=== PATIENT | male | born 1945 | race African-American/Black ===

== ENCOUNTER → 2016-09-12 | Outpatient (CLI) | payer OTHER, BC ==
[~2016-09-12] VITALS: Ht 185.4 cm; Wt 111.9 kg
[~2016-09-12] MED LIST: ACTOS 30 MG TAB30 M1 PO; ALEVE220 MG PO; AMLODIPINE BESY10 MG PO; ASPIR 8181 MG PO; ASPIRIN325 PO; CARDURA2 MG PO; HYDROCODONE-AP1 EAC6 PO; LISINOPRIL-HCT1 EAC2 PO; METOPROLOL SUCC50 MG PO; NORCO 7.5-3251 EACH PO; NORFLEX100 MG PO; NORVASC 5 MG TAB5 MG PO; TRAMADOL 50 MG50 MG PO; ZETIA10 MG PO; ZOCOR40 MG PO
--- NOTE | ~2016-09-12 | HPC ---
[facility] [address] [place] [address] PAIN MANAGEMENT CONSULTATION Name: SIMON MOULTON Room #: REG MANDY GrahamJeannetteTamika.#: [id number] Admission: 09/12/16 Attend Phys: Richard Mike DO Discharge: Date of : 43 Report #: [id number] THIS REPORT FOR: //name// CC: Bert Hansen NP DATE OF SERVICE: 09/12/2016 REFERRING PHYSICIAN: Dallas Jackson MD and Haley Hansen NP. CHIEF COMPLAINT: Low back pain, bilateral lower extremity pain with paresthesias. HISTORY OF PRESENT ILLNESS: As you know, the patient is a very pleasant 71-year-old male, who returns today in followup visit with pain score 3-4/10. States his pain began 8-9 years ago, worse in 2-3 years ago. He indicates his pain is tingling and unsteady. Describes the pain as exacerbated with walking and improves with medications and epidural injections. He underwent epidural injection at our last visit with a 70% improvement in overall pain that is ongoing. He has returned today in followup visit, requesting an epidural injection to build on the success of previous intervention. Denies any new injury or new trauma. ALLERGIES: No known drug allergies. CURRENT MEDICATIONS: Zetia, metoprolol, Cardura, amlodipine, hydrocodone, Actos, aspirin, Zocor, and lisinopril/hydrochlorothiazide. SOCIAL HISTORY: The patient is a reformed smoker. He has 1 year of nonsmoking. Denies IV or illicit drug use. Admits to occasional alcoholic beverage. He is retired. Unaccompanied today. PHYSICAL EXAMINATION: VITAL SIGNS: Blood pressure 186/87, pulse 70, respiratory rate 16 and unlabored. The patient is 99% on room air, height 6 feet 1 inch tall, weight 246.8 pounds, BMI calculated 32.6. GENERAL: Well developed, well nourished, and well hydrated. A 71-year-old, exogenously obese male, appearing his stated age, pain is rated at 3-4/10. HEENT: Normocephalic and atraumatic. Pupils are equally round and reactive to light. EXTREMITIES: Show no clubbing, no cyanosis, no edema. MUSCULOSKELETAL: Lower extremity strength appears equal and symmetrical at 5/5, intact to light touch from L1 through S2 dermatomes. Ronald's test negative. [facility] [address] [place] [address] PAIN MANAGEMENT CONSULTATION Name: SIMON MOULTON [facility] [id number] Admission: 09/12/16 Attend Phys: Richard Mike DO Discharge: Date of : 43 Report #: [id number] Modified Gaenslen's is positive for axial low back pain. Gait is tandem. Station normal. Seated straight leg raising negative. Supine straight leg raising positive. ASSESSMENT: 1. Symptomatic lumbar radiculopathy. 2. Displacement of lumbar intervertebral disk with radiculopathy. 3. Lumbosacral spondylosis with radiculopathy. 4. Degeneration of the lumbar spine. 5. Chronic intractable pain. PLAN: 1. The patient returns today in followup visit, requesting to undergo the next in the series of epidural injections. He has noted 70% improvement in overall pain with previous injection. He has been advised the risks and benefits of the repeat injection, states he understood and wished to proceed. 2. The patient's blood pressure is quite elevated today, blood pressure is 186/87. I recommend the patient return to see his primary care physician for adjustment in his oral antihypertensive therapy. The patient states he will make an appointment as quickly as possible. He will be seen in consultation. 3. No medication changes were made at today's visit from a pain standpoint. He is to continue current medical therapy as previously prescribed. 4. We will see the patient back in followup visit on an as needed basis for a possible repeat epidural injection. We are pleased to see he has done very well with the initial injection, and I am hopeful, he will see similar improvement with today's procedure, delaying the third in the series, as long as possible. PROCEDURE NOTE: DESCRIPTION OF PROCEDURE: L5-S1 interlaminar epidural steroid injection under fluoroscopic guidance. This is the second procedure of the first series that the patient is undergoing. After obtaining written consent, the patient was taken back to the fluoroscopy suite, placed in a prone position with pillow under the abdomen to decrease lumbar lordosis. The skin overlying the lumbosacral area was then prepped and draped in aseptic fashion. The L5-S1 vertebral interspace was then identified by AP fluoroscopy. The skin and subcutaneous tissue overlying the target site of injection was anesthetized with 3 mL 1% lidocaine. A 20-guage 3-1/2 inch Tuohy needle was then advanced under fluoroscopic guidance towards the epidural space using a paramedian approach. The epidural space was identified using loss of resistance to air technique. After negative aspiration for heme or cerebrospinal fluid, a total of 1 mL of Omnipaque was injected. A lumbar epidurogram was confirmed using both AP and lateral fluoroscopy. After negative aspiration for heme or cerebrospinal fluid, 5 mL of solution of [address] [address] PAIN MANAGEMENT CONSULTATION Name: SIMON MOULTON Room #: REG MANDY Chaney#: [id number] Admission: 09/12/16 Attend Phys: Richard Mike DO Discharge: Date of : 43 Report #: [id number] containing 2 mL 40 mg per mL 80 mg in total triamcinolone, 3 mL of lidocaine 1% was injected in increments. Contrast spread was noted posterior epidural space. The needle was then retracted approximately half way and needle tract flushed with 1 mL of 1% lidocaine. Needle was then removed. There were no apparent sensory or motor deficits in the lower extremity following the procedure. A sterile bandage was placed over the injection site. The heart rate, pulse, oximetry and blood pressure were continuously monitored after the procedure. There were no apparent complications. The patient tolerated the procedure well and was carefully escorted to the recovery room in stable condition. There were no apparent complications. After meeting discharge criteria, the patient was then discharged home. <ELECTRONICALLY SIGNED> By: Richard Mike DO 09/13/16 0757 [id number] Richard Mike DO /nt
[2016-09-12 09:21] VITALS: BP 186/87
== END | disposition home or self-care (01) ==
LOC: PAIN 07-04 11:17
DX: M51.16 Intervertebral disc disorders with radiculopathy, lumbar region (principal); M47.27 Other spondylosis with radiculopathy, lumbosacral region; G89.29 Other chronic pain; Z87.891 Personal history of nicotine dependence

== ENCOUNTER → 2017-07-03 | Outpatient (CLI) | payer OTHER, BC ==
[~2017-07-03] VITALS: Ht 185.4 cm; Wt 110.9 kg
--- NOTE | ~2017-07-03 | HPC ---
[facility] [address] [place] [address] PAIN MANAGEMENT CONSULTATION Name: SIMON MOULTON Room #: REG MANDY M.Tamika.#: [id number] Admission: 07/03/17 Attend Phys: Richard Mike DO Discharge: Date of : 43 Report #: [id number] THIS REPORT FOR: //name// CC: Bert Hansen NP DATE OF SERVICE: 07/03/2017 CHIEF COMPLAINT: Low back pain, bilateral lower extremity pain with paresthesias. HISTORY OF PRESENT ILLNESS: As you know, the patient is a very pleasant 72-year-old male, who returns today in followup visit reporting pain score of around 4/10, states his pain numbness, tingling, unsteady and deep aching in sensation, exacerbated with walking and exercise. Improves with medications, rest and epidural injections. The patient reports a 75% improvement of overall pain with previous epidural injection. He returns today in followup visit requesting to undergo the next in a series of epidural injections. He denies injury or trauma that may have led to progression of symptoms. He reports no change in his medical history since our last visit. ALLERGIES: No known drug allergies. CURRENT MEDICATIONS: Zetia, metoprolol, Cardura, amlodipine, hydrocodone, pioglitazone, aspirin, simvastatin, lisinopril/hydrochlorothiazide. SOCIAL HISTORY: The patient is a reformed smoker. Denies IV or illicit drug use. Denies any chronic alcohol use. He is unaccompanied today. IMAGING: No new imaging available. PHYSICAL EXAMINATION: VITAL SIGNS: Blood pressure 144/91, pulse 61, respiratory rate 16, unlabored. The patient is 97% on room air, height 6 feet 1 inch tall, weight 244.4 pounds, BMI calculated 32.3. GENERAL: Well-developed, well-nourished, well-hydrated 72-year-old male, appearing stated age, placing current pain score 4/10. HEENT: Normocephalic, atraumatic. Pupils equal, round, reactive to light. Speech fluent. EXTREMITIES: Show no clubbing, no cyanosis, no edema. MUSCULOSKELETAL: Lower extremity strength equal and symmetrical 5/5, intact to light touch from L1 through S2 dermatomes. Gait is mildly antalgic. Seated straight leg raising negative. Supine straight leg raising positive. Modified Gaenslen's positive for axial low back pain. Ankle clonus negative. [address] [address] PAIN MANAGEMENT CONSULTATION Name: SIMON MOULTON Room #: REG CLI [facility]#: [id number] Admission: 07/03/17 Attend Phys: Richard Mike DO Discharge: Date of : 43 Report #: [id number] is negative. ASSESSMENT: 1. Symptomatic lumbar radiculopathy. 2. Displacement of lumbar intervertebral disk with radiculopathy. 3. Lumbosacral spondylosis with radiculopathy. 4. Lumbar degeneration. 5. Chronic intractable pain. PLAN: 1. The patient returns today in followup visit indicating good benefit with previous epidural injection, 75% improvement in overall pain, lasting until just recently. He has had a slow and progressive return of symptoms, returning today requesting epidural injection. He denies injury or trauma or changes in medical history since our last visit. He has been advised on risks and benefits of the procedure. These risks include but are not necessarily limited to bleeding, bruising, infection, worsening pain, no relief of pain, also risk of temporary or permanent muscle weakness, temporary or permanent nerve damage, possible paralysis and . The patient states understood and wished to proceed. 2. No medication changes were made at today's visit. The patient will continue current medical therapy as previously prescribed. 3. The patient to return to our clinic on an as needed basis for the next in a series of epidural injections. PROCEDURE NOTE DESCRIPTION OF PROCEDURE: L5-S1 interlaminar epidural steroid injection under fluoroscopic guidance. After obtaining written consent, the patient was taken back to fluoroscopy suite, placed in prone position with pillow under abdomen to decrease lumbar lordosis. Skin overlying lumbosacral area prepped and draped in aseptic fashion. Lumbar intervertebral spaces were identified by AP fluoroscopy. Skin and subcutaneous tissue overlying target site of injection was anesthetized with 3 mL of 1% lidocaine. A 20-gauge 3.5 inch Tuohy needle advanced under fluoroscopic guidance towards the epidural space using a left paramedian approach. Epidural space identified using loss of resistance to air technique. After negative aspiration for heme or cerebrospinal fluid, 1 mL of Omnipaque was injected. Lumbar epidurogram was confirmed using both AP and lateral fluoroscopy. After negative aspiration for heme or cerebrospinal fluid, 5 mL of a solution containing 2 mL 40 mg/mL 80 mg total triamcinolone, 3 mL lidocaine 1% injected slowly. Needle retracted senior care, needle tract flushed 3 mL 1% lidocaine. Needle then removed. Sterile bandage placed over injection site. No new motor deficits present in the lower extremities following procedure. [facility] [address] [place] [address] PAIN MANAGEMENT CONSULTATION Name: SIMON MOULTON Room #: REG Ruel Olayinka#: [id number] Admission: 07/03/17 Attend Phys: Richard Mike DO Discharge: Date of : 43 Report #: [id number] The patient tolerated procedure well, carefully escorted to the recovery in stable condition. No apparent complications. After meeting discharge criteria, the patient discharged home. By: [id number] Richard Mike DO /nt
[2017-07-03 08:47] VITALS: BP 144/91
== END | disposition home or self-care (01) ==
LOC: PAIN 06:52
DX: M51.16 Intervertebral disc disorders with radiculopathy, lumbar region (principal); M47.27 Other spondylosis with radiculopathy, lumbosacral region; G89.29 Other chronic pain; Z87.891 Personal history of nicotine dependence; Z79.899 Other long term (current) drug therapy; Z79.82 Long term (current) use of aspirin

== ENCOUNTER → 2018-11-26 | Outpatient (CLI) | payer OTHER, BC ==
[~2018-11-26] VITALS: Ht 185.4 cm; Wt 111.1 kg
[2018-11-26 10:55] VITALS: BP 164/86
--- NOTE | 2018-11-26 11:02 | NUR ---
Pain Clinic Assessment: 1. History of Osteoarthritis: Not Applicable History of Rheumatoid Arthritis: Not Applicable 2. Height: 6 ft. 1 in. 185.4 cm. Weight: 245.0 lb. oz. 111.132 kg. Patient's BMI: 32.3 3. Vital Signs: BP: 164/86 Pulse: 55 Resp: 16 Temp: 02 Sat: 98 ECG Mon: 4. Pain Intensity: 7 5. Fall Risk: Dizziness: N Needs help standing or walking: N Fallen in the last 3 months: N Fall risk comments: 6. Patient on Blood Thinner: None 7. History of Hypertension: Y 8. Opioid Therapy greater than 6 weeks: Y Opiate Contract Signed: 9. Risk Assessment Tool Provided: 0-LOW 10. Functional Assessment Tool: 11. Recreational Drug Use: Never Drug Type: Tobacco Use: Former Smoker Tobacco Type: Amount or Packs/day: How Many Years: Alcohol Use: No Frequency: Quant:
--- NOTE | 2018-12-03 08:15 | HPC ---
[facility] [address] [place] [address] PAIN MANAGEMENT CONSULTATION Name: SIMON MOULTON Room #: REG CLRuel M.Tamika.#: [id number] Admission: 11/26/18 ������������������ Attend Phys: Richard Mike DO Discharge: ������������������ Date of : 43 Report #: [id number] THIS REPORT FOR: //name// CC: Bert Hansen NP DATE OF SERVICE: 11/26/2018 CHIEF COMPLAINT: Low back pain, bilateral lower extremity pain with paresthesias. HISTORY OF PRESENT ILLNESS: As you know, the patient is a very pleasant 73-year-old male, who returns today in followup visit with recurrent low back pain and mainly left lower extremity pain with paresthesias. He indicates pain level of 7/10, states pain is tingling, unsteady, numbness, deep aching and fatiguing in its presentation. He describes pain is exacerbated with walking and exercise, improves with medications and rest and previous epidural injection. The patient reports 80% improvement in overall pain with the last epidural injection lasting for nearly 9 months. He returns today in followup visit to undergo next in the series to address recurrent lumbar radicular symptoms. He denies new injury, new trauma or any changes in medical history since our last visit. ALLERGIES: No known drug allergies. CURRENT MEDICATIONS: Zetia, metoprolol, Cardura, amlodipine, hydrocodone, pioglitazone, aspirin, simvastatin, lisinopril/hydrochlorothiazide. SOCIAL HISTORY: The patient denies tobacco, alcohol, IV or illicit drug use. He is a reformed smoker. He is unaccompanied today. IMAGING: There is no new imaging available. PQRS: The patient has osteoarthritic changes of the low back, bilateral hips and knees. No rheumatoid arthritis. He is placing pain intensity today at 7/10. He is not a fall risk, has not had a fall in the last 3 months. He is not on blood thinners. She has history of hypertension. He has been on long-term opioids and is a low risk for opioid addiction. He is placing pain impact score 13/70 indicating mild interference of daily activities secondary to pain. PHYSICAL EXAMINATION: VITAL SIGNS: Blood pressure 164/86, pulse is 55, respiratory rate 16 and unlabored. The patient is 98% on room air, height 6 feet 1 inch tall, weight [facility] [address] [place] [address] PAIN MANAGEMENT CONSULTATION Name: SIMON MOULTON Room #: REG [facility] M.R.#: [id number] Admission: 11/26/18 ������������������ Attend Phys: Richard Mike DO Discharge: ������������������ Date of : 43 Report #: [id number] 245 pounds, BMI calculated 32.3. GENERAL: Well-developed, well-nourished, well-hydrated 73-year-old male, appearing stated age, placing current pain score 7/10. HEENT: Normocephalic, atraumatic. Pupils equal, round, reactive to light. EXTREMITIES: Show no clubbing, no cyanosis, no edema. MUSCULOSKELETAL: Lower extremity strength is symmetrical 5/5. Slight giveaway strength noted with hip flexion on the left due to pain generation. Muscle bulk and tone is symmetrical in comparing left lower extremity to right. Seated straight leg raising negative. Supine straight leg raising positive left. KERON test negative. ASSESSMENT: 1. Symptomatic lumbar radiculopathy. 2. Displacement of a lumbar intervertebral disk with radiculopathy. 3. Lumbosacral spondylosis with radiculopathy. 4. Degeneration of lumbar spine. 5. Chronic intractable pain. PLAN: 1. The patient has returned today in followup visit requesting to undergo epidural injection under fluoroscopic guidance to address his recurrent lumbar radicular symptoms. He is now placing pain score 7/10. Pain is radiating in the typical distribution he has had in the past. He received excellent benefit with previous epidural injection for nearly 9 months of an 80% improvement. He returns requesting to undergo next in the series of epidural injections to build on success of previous intervention. The patient is advised of the risks and benefits of the procedure, states understood and wished to proceed. 2. No medication changes made at today's visit. The patient will continue current medical therapy as previously prescribed. 3. We will see the patient back in followup visit on an as needed basis for the next in the series of lumbar epidural injections. PROCEDURE NOTE DESCRIPTION OF PROCEDURE: L5-S1 left paramedian epidural steroid injection under fluoroscopic guidance. This is the second procedure of the second series that the patient is undergoing. After obtaining written consent, the patient was taken back to the fluoroscopy suite, placed in a prone position with pillow under the abdomen to decrease lumbar lordosis. The skin overlying the lumbosacral area was then prepped and draped in aseptic fashion. The L5-S1 vertebral interspace was then identified by AP fluoroscopy. The skin and subcutaneous tissue overlying the target site of injection was anesthetized with 3 mL 1% lidocaine. [address] [address] PAIN MANAGEMENT CONSULTATION Name: SIMON MOULTON Room #: REG MANDY Bhagat#: [id number] Admission: 11/26/18 ������������������ Attend Phys: Richard Mike DO Discharge: ������������������ Date of : 43 Report #: [id number] A 20-guage 3-1/2 inch Tuohy needle was then advanced under fluoroscopic guidance towards the epidural space using a left paramedian approach. The epidural space was identified using loss of resistance to air technique. After negative aspiration for heme or cerebrospinal fluid, a total of 0.7 mL of Omnipaque was injected. A lumbar epidurogram was confirmed using both AP and lateral fluoroscopy. After negative aspiration for heme or cerebrospinal fluid, 5 mL of a solution containing 2 mL, 40 mL per mL, 80 mg total of triamcinolone, 3 mL of lidocaine 1% was injected in increments. Contrast spread was noted posterior epidural space. The needle was then retracted approximately half way and needle tract flushed with 1 mL of 1% lidocaine. Needle was then removed. There were no apparent sensory or motor deficits in the lower extremity following the procedure. A sterile bandage was placed over the injection site. The heart rate, pulse, oximetry and blood pressure were continuously monitored after the procedure. There were no apparent complications. The patient tolerated the procedure well and was carefully escorted to the recovery room in stable condition. There were no apparent complications. After meeting discharge criteria, the patient was then discharged home. ��������������������������������������������� <ELECTRONICALLY SIGNED> ���������������������������������������� By: Richard Mike DO ��������������������������������������������� 12/03/18 0815 [id number] Richard Mike DO /nt
== END | disposition home or self-care (01) ==
LOC: PAIN 07:13
DX: M51.16 Intervertebral disc disorders with radiculopathy, lumbar region (principal); M47.27 Other spondylosis with radiculopathy, lumbosacral region; G89.29 Other chronic pain; M19.90 Unspecified osteoarthritis, unspecified site; I10 Essential (primary) hypertension; Z87.891 Personal history of nicotine dependence; Z79.899 Other long term (current) drug therapy; Z79.82 Long term (current) use of aspirin; Z79.891 Long term (current) use of opiate analgesic; Z98.890 Other specified postprocedural states

== ENCOUNTER → 2019-12-02 | Outpatient (CLI) | payer OTHER, BC ==
[~2019-12-02] VITALS: Ht 185.4 cm; Wt 111.0 kg
[~2019-12-02] MED LIST changes: +MELOXICAM7.5 MG PO
[2019-12-02 08:20] VITALS: BP 163/79
--- NOTE | 2019-12-02 08:38 | NUR ---
Pain Clinic Assessment: 1. History of Osteoarthritis: Not Applicable History of Rheumatoid Arthritis: Not Applicable 2. Height: 6 ft. 1 in. 185.4 cm. Weight: 244.6 lb. oz. 110.950 kg. Patient's BMI: 32.3 3. Vital Signs: BP: 163/79 Pulse: 66 Resp: 14 Temp: 02 Sat: 100 ECG Mon: 4. Pain Intensity: 4-5 5. Fall Risk: Dizziness: N Needs help standing or walking: N Fallen in the last 3 months: N Fall risk comments: 6. Patient on Blood Thinner: None 7. History of Hypertension: Y 8. Opioid Therapy greater than 6 weeks: Y Opiate Contract Signed: 9. Risk Assessment Tool Provided: 0-LOW 10. Functional Assessment Tool: 11. Recreational Drug Use: Never Drug Type: Tobacco Use: Former Smoker Tobacco Type: Amount or Packs/day: How Many Years: Alcohol Use: No Frequency: Quant:
--- NOTE | 2019-12-09 09:15 | HPC ---
[facility] [place] [address] PAIN MANAGEMENT CONSULTATION Name: SIMON MOULTON Room #: REG Ruel M.R.#: [id number] Admission: 12/02/19 Attend Phys: Richard Mike DO Discharge: Date of : 43 Report #: [id number] THIS REPORT FOR: cc: Bert Pardo MD, David A. MD Johnson, James E. DO ~ DATE OF SERVICE: 12/02/2019 CHIEF COMPLAINT: Low back pain, bilateral lower extremity pain, left greater than right, chronic left knee pain. HISTORY OF PRESENT ILLNESS: As you know, the patient is a very pleasant 74-year-old male who returns today in followup visit to undergo next in the series of lumbar epidural injections under fluoroscopic guidance. The patient reports previous epidural injection gave 75% improvement in overall pain. This was provided on 11/26/2018. He returns today in followup visit to undergo next in the series of lumbar epidural injections to address recurrent lumbar radicular symptoms, rating pain at 4-5/10. The patient denies injury or trauma that may have led to symptom development. He is also complaining of chronic left knee pain due to osteoarthritis and wishes further workup in regards to this issue. He denies injury or trauma to this left knee as well. ALLERGIES: No known drug allergies. CURRENT MEDICATIONS: Metoprolol 50 mg once a day, amlodipine 10 mg once a day, hydrocodone 5/325 one tab every 8 hours p.r.n. for pain, pioglitazone 30 mg once a day, aspirin 81 mg per day, lisinopril/hydrochlorothiazide 20/25 mg once a day. SOCIAL HISTORY: The patient denies tobacco, alcohol, IV or illicit drug use. He is a reformed smoker. He is unaccompanied today. IMAGING: No new imaging available. PQRS: The patient has known arthritic changes of the lumbar spine, bilateral hips and bilateral knees, left greater than right. No rheumatoid arthritis. He is placing pain today at 4-5/10. Not a fall risk, has not had a fall in last 3 months. He is not on blood thinners, but is treated for hypertension. He is on chronic opioids and has a low opioid addiction potential based on our assessment tool. Pain impact score 5/70 indicating mild interference of daily activities secondary to pain. PHYSICAL EXAMINATION: VITAL SIGNS: Blood pressure 163/79, pulse 66, respiratory rate 14 and [facility] [address] [place] [address] PAIN MANAGEMENT CONSULTATION Name: SIMON MOULTON [id number] Admission: 12/02/19 Attend Phys: Richard Mike DO Discharge: Date of : 43 Report #: [id number] unlabored. The patient is 100% on room air. Height 6 feet 1 inch tall, weight 244.6 pounds, BMI calculated 32.3. GENERAL: Well-developed, well-nourished, well-hydrated 74-year-old male appearing his stated age, pain is rated anywhere from 4-5/10. HEENT: Normocephalic, atraumatic. Pupils equal, round, and reactive to light. Extraocular muscles are intact. EXTREMITIES: Show no clubbing, no cyanosis, and no edema. MUSCULOSKELETAL: There is palpatory tenderness noted over the paraspinal musculature of lower lumbar spine. No spinous process tenderness. Seated straight leg raising negative. Supine straight leg raising positive on the left. Active and passive range of motion of the left knee causes intensification of pain. Lateral collateral and medial collateral ligaments are intact. Drawer tests are negative, both anterior and posterior. ASSESSMENT: 1. Symptomatic lumbar radiculopathy. 2. Displacement of lumbar intervertebral disk with radiculopathy. 3. Lumbosacral spondylosis with radiculopathy. 4. Lumbar degeneration. 5. Osteoarthritis of the left knee. 6. Chronic intractable pain. PLAN: 1. Based on today's physical exam and history the patient has provided, the description the patient uses in regards to pain as well as location of symptoms, likely source of the patient's pain is lumbar radiculopathy. The patient does have a pain level today rated at 4-5/10 consistent with his lumbar radicular symptoms involving mainly the left lower extremity. He has been advised of the risks and the benefits of repeated epidural injection. These risks include but are not necessarily limited to bleeding, bruising, infection, worsening pain, no relief of pain, also risk of temporary or permanent muscle weakness, temporary or permanent nerve damage, possible paralysis and . The patient states understood and wished to proceed. 2. The patient does appear to have increasing arthritic changes of the left knee. Active and passive range of motion does increase overall knee pain, though drawer tests are negative as is laxity testing for the medial collateral and lateral collateral ligaments. Given the patient's age, I believe his symptoms are related more osteoarthritis. I was unable to elicit any concerning findings for a meniscal injury. We recommend the patient to undergo x-ray imaging of the left knee to further evaluate. There is a possibility we can discuss interventional treatments with patient if necessary. He is amenable to undergo the x-ray today. The patient was given an x-ray request for AP and lateral imaging to further evaluate this left knee. If findings are significant, I may provide a referral to Orthopedics. 3. We will start the patient on meloxicam to address his ongoing left knee osteoarthritic pain as well as his other pain generators due to osteoarthritis [facility] [address] [place] [address] PAIN MANAGEMENT CONSULTATION Name: SIMON MOULTON Room #: REG [facility].#: [id number] Admission: 12/02/19 Attend Phys: Richard Mike DO Discharge: Date of : 43 Report #: [id number] including the right knee and bilateral hips. I have started the patient on 7.5 mg dose of meloxicam to be taken in the morning. He can then follow up with a second dose in the evening with meal. He was given #60 tablets and 2 refills, 3 months' worth of medication. The patient will make sure he contact his PCP before initiating the therapy as there is a potential concern of longstanding nonsteroidal anti-inflammatory treatment and renal effects. Prescription was sent via e-script to local pharmacy. 4. We will see the patient back in followup visit on an as needed basis for possible next in the series of epidural injections. He can contact our clinic tomorrow, 12/03/2019 for the findings of his x-ray imaging of the left knee. PROCEDURE NOTE: DESCRIPTION OF PROCEDURE: L5-S1 left paramedian epidural steroid injection under fluoroscopic guidance. After obtaining written consent, the patient was taken back to fluoroscopy suite, placed in prone position with pillow under abdomen to decrease lumbar lordosis. Skin overlying lumbosacral area then prepped and draped in aseptic fashion. The L5-S1 vertebral interspace identified by AP fluoroscopy. Skin and subcutaneous tissue overlying target site injection anesthetized with 3 mL of 1% lidocaine. A 20-gauge 3-1/2 inch Tuohy needle advanced under fluoroscopic guidance towards the epidural space using left paramedian approach. The epidural space identified using loss of resistance to air technique. After negative aspiration for heme or cerebrospinal fluid, 1 mL of Omnipaque injected. Lumbar epidurogram confirmed using both AP and oblique fluoroscopy. After negative aspiration for heme or cerebrospinal fluid, 5 mL of a solution containing 2 mL 40 mg per mL, 80 mg total of triamcinolone along with 3 mL of lidocaine 1% injected slowly. Needle retracted skilled nursing, flushed with 1 mL of 1% lidocaine and then removed. Sterile bandage placed over injection site. No new motor deficits present in lower extremities following procedure. The patient tolerated procedure well, carefully escorted to recovery room in stable condition. No apparent complications. After meeting discharge criteria, the patient discharged home. <ELECTRONICALLY SIGNED> By: Richard Mike DO 12/09/19 0915 [id number] [id number] Richard Mike DO /nt
== END | disposition home or self-care (01) ==
LOC: PAIN 06:41
DX: M51.16 Intervertebral disc disorders with radiculopathy, lumbar region (principal); M47.27 Other spondylosis with radiculopathy, lumbosacral region; G89.29 Other chronic pain; M17.12 Unilateral primary osteoarthritis, left knee; M19.90 Unspecified osteoarthritis, unspecified site; I10 Essential (primary) hypertension; Z98.890 Other specified postprocedural states; Z79.899 Other long term (current) drug therapy; Z79.82 Long term (current) use of aspirin; Z79.891 Long term (current) use of opiate analgesic

== ENCOUNTER → 2021-09-13 | Outpatient (CLI) | payer OTHER, BC ==
[~2021-09-13] VITALS: Ht 185.4 cm; Wt 109.8 kg
[~2021-09-13] MED LIST changes: +FENOFIBRATE160 MG PO
[2021-09-13 09:06] VITALS: BP 162/90
--- NOTE | 2021-09-13 09:28 | NUR ---
Pain Clinic Assessment: 1. History of Osteoarthritis: SPINE AND LEFT KNEE History of Rheumatoid Arthritis: Not Applicable 2. Height: 6 ft. 1 in. 185.4 cm. Weight: 242.0 lb. oz. 109.771 kg. Patient's BMI: 31.9 3. Vital Signs: BP: 162/90 Pulse: 78 Resp: 14 Temp: 02 Sat: 100 ECG Mon: 4. Pain Intensity: 0 TO 6 (IN am) 5. Fall Risk: Dizziness: N Needs help standing or walking: N Fallen in the last 3 months: N Fall risk comments: 6. Patient on Blood Thinner: None 7. History of Hypertension: Y 8. Opioid Therapy greater than 6 weeks: Y Opiate Contract Signed: 9. Risk Assessment Tool Provided: 0-LOW 10. Functional Assessment Tool: 11. Recreational Drug Use: Never Drug Type: Tobacco Use: Former Smoker Tobacco Type: Amount or Packs/day: How Many Years: Alcohol Use: No Frequency: Quant:
--- NOTE | 2021-09-13 13:46 | HPC ---
[facility] [place] [address] PAIN MANAGEMENT CONSULTATION Name: SIMON MOULTON Room #: REG MANDY [facility].#: [id number] Admission: 09/13/21 Attend Phys: Richard Mike DO Discharge: Date of : 43 Report #: [id number] THIS REPORT FOR: cc: Bert Pardo MD, David A. MD Johnson, James E. DO ~ cc: Bert Pardo MD DATE OF SERVICE: 09/13/2021 REFERRING PHYSICIAN: Bert Pardo MD CHIEF COMPLAINT: Low back pain, left lower extremity pain with paresthesias. HISTORY OF PRESENT ILLNESS: As you know, the patient is a very pleasant 76-year-old male, returning in followup visit with pain score of about 6/10 upon arising in the morning hours. He states that previous epidural injection provided in 11/2019 gave 75% improvement in overall pain until just recently. He has had a slow and progressive return of symptoms. The patient denies injury or trauma that may have led to symptom development. He continues to experience left knee pain for which he has been advised by his primary care physician to look towards orthopedic surgical options as he has severe changes, unresponsive to injections. He has returned today in followup visit to undergo lumbar epidural injection under fluoroscopic guidance to address his recurrent lumbar radicular symptoms involving the low back and left lower extremity. He is very pleased with response to the initial injection, returning today in followup visit requesting the next in the series. The patient denies new injury, new trauma that may have led to symptom development. He has had no changes in his medication management that would preclude him from undergoing the requested lumbar epidural injection today. ALLERGIES: No known drug allergies. CURRENT MEDICATIONS: Fenofibrate, meloxicam, metoprolol, amlodipine, hydrocodone, pioglitazone, aspirin, lisinopril, and hydrochlorothiazide. SOCIAL HISTORY: The patient denies tobacco, alcohol or IV or illicit drug use. He is unaccompanied today. IMAGING: No new imaging available. PQRS: The patient has known arthritic changes of the lumbar spine and left knee. No rheumatoid arthritis. He is placing pain intensity anywhere from 0-6/10 depending on activity. He is not at fall risk, has not had a fall in last 3 months. He is not on blood thinners, but is treated for hypertension. He is on chronic opioids, has a low opioid addiction potential based on assessment tool. Pain impact is 5/70, mild interference of daily activities [facility] [address] [place] [address] PAIN MANAGEMENT CONSULTATION Name: SIMON MOULTON [facility]: [facility] [id number] Admission: 09/13/21 Attend Phys: Richard Mike DO Discharge: Date of : 43 Report #: [id number] secondary to pain. PHYSICAL EXAMINATION: VITAL SIGNS: Blood pressure 162/90, pulse is 78, respiratory rate 14 and unlabored. The patient 100% on room air. Height 6 feet 1 inch tall, weight 242 pounds, BMI calculated 31.9. GENERAL: Well-developed, well-nourished, well-hydrated 76-year-old male appearing stated age, pain is rated anywhere from 0-6/10 depending on activity. HEENT: Normocephalic, atraumatic. The patient is wearing a mask in compliance with [place] regulations and hospital policies. EXTREMITIES: Show no clubbing, no cyanosis, no edema. MUSCULOSKELETAL: Lower extremity strength appears symmetrical again today 5/5. Muscle bulk and tone is symmetrical in comparing lower extremities. Seated straight leg raising negative. Supine straight leg raising positive on the left. Active and passive range of motion of the right knee provides no pain. Left knee shows increase in pain intensity. There is no crepitus with movement. Lateral collateral ligaments are intact bilaterally. Drawer tests are negative bilaterally. ASSESSMENT: 1. Symptomatic lumbar radiculopathy. 2. Displacement of lumbar intervertebral disk with radiculopathy. 3. Lumbosacral spondylosis with radiculopathy. 4. Lumbar degeneration. 5. Osteoarthritis of the left knee. 6. Chronic intractable pain. PLAN: 1. The patient returns today in followup visit, requesting a lumbar epidural injection under fluoroscopic guidance. He reports excellent improvement with this injection that was provided at our visit of 12/02/2019. In fact, he has been doing very well until just recently where he has had a slow and progressive return of symptoms, reporting up to 75% improvement in overall pain. He returns requesting a lumbar epidural injection under fluoroscopic guidance to address recurrent lumbar radicular pain. The patient has been advised risks and benefits of the procedure, states understood and wished to proceed. 2. The patient had a long discussion today about his ongoing left knee pain. We have done imaging of his left knee, which shows changes that will likely require surgical options. The patient is resistant to consider this option at this point. He has undergone injections by his primary care physician to address knee pain, but this was met with only transient pain improvement. He has been advised by his PCP to look towards orthopedic options as well. I have offered to the patient the opportunity to be referred to see Orthopedic Surgery. He will consider this option. I will keep this option available to him. If he wishes a referral, I would be more than willing to provide this. 3. No medication changes made at today's visit. The patient will continue [facility] [address] [place] [address] PAIN MANAGEMENT CONSULTATION Name: SIMON MOULTON [facility] [id number] Admission: 09/13/21 Attend Phys: Richard Mike DO Discharge: Date of : 43 Report #: [id number] current medical therapy as prior prescribed. 4. Plan to see the patient back in followup visit on an as needed basis for the next in the series of lumbar epidural injections. I am hopeful the patient will once again see good and prolonged benefit with the procedure provided today. PROCEDURE NOTE. DESCRIPTION OF PROCEDURE: L5-S1 left paramedian epidural steroid injection under fluoroscopic guidance. After obtaining written consent, the patient was taken back to fluoroscopy suite, placed in prone position with pillow under abdomen to decrease lumbar lordosis. Skin overlying the lumbosacral area prepped and draped in aseptic fashion. L5-S1 vertebral interspace was identified by AP fluoroscopy. Skin and subcutaneous tissue overlying target site injection anesthetized with 3 mL of 1% lidocaine. A 20 gauge 3-1/2 inch Tuohy needle advanced under fluoroscopic guidance towards the epidural space using a left paramedian approach. Epidural space was identified using loss of resistance to air technique. After negative aspiration for heme or cerebrospinal fluid, 1 mL of Omnipaque injected. Lumbar epidurogram confirmed using both AP and lateral fluoroscopy. After negative aspiration for heme or cerebrospinal fluid, 5 mL of solution containing 2 mL of 40 mg per mL, 80 mg total triamcinolone along with 3 mL of lidocaine 1% injected slowly. Needle retracted senior living flushed with 1 mL of 1% lidocaine and removed. Sterile bandage placed over injection site. No new motor deficits present in lower extremity following procedure. The patient tolerated the procedure well, carefully escorted to recovery room in stable condition. No apparent complications. After meeting discharge criteria, the patient discharged home. <ELECTRONICALLY SIGNED> By: Richard Mike DO 09/13/21 1346 0921 1207 Richard Mike DO /nt
== END | disposition home or self-care (01) ==
LOC: PAIN 08:22
PROVIDERS: ATTEND Anesthesiology Pain Medicine
DX: M51.16 Intervertebral disc disorders with radiculopathy, lumbar region (principal); M47.27 Other spondylosis with radiculopathy, lumbosacral region; M17.12 Unilateral primary osteoarthritis, left knee; G89.29 Other chronic pain; I10 Essential (primary) hypertension; M19.90 Unspecified osteoarthritis, unspecified site; Z98.890 Other specified postprocedural states; Z79.899 Other long term (current) drug therapy; Z87.891 Personal history of nicotine dependence